=== PATIENT | male | born 1970 | race Caucasian/White ===

== ENCOUNTER 2016-06-08 12:48 | Emergency (ER) ==
[2016-06-08 13:11] VITALS: BP 133/74
[2016-06-08] MEDS ORDERED: MORPHINE IV ONE (13:46)
[2016-06-08] MEDS ORDERED: ZOFRAN IV ONE (13:46)
[2016-06-08] MEDS ORDERED: NS 1,000 ML IV ONE (13:46)
[2016-06-08 14:05] LABS: MANUAL DIFF NEEDED? NO
[2016-06-08 14:09] LABS: BASO% 0.5 % (0.0-0.8); EOS# 0.39 X1000 (0.0-0.7); EOS% 2.6 % (0.0-10.0); HEMATOCRIT 44.4 % (42.0-52.0); HEMOGLOBIN 15.1 g/dL (14.0-18.0); IMM GRAN# 0.14 X1000 (0.0-0.04); IMM GRAN% 0.9 % (0.0-0.5); LYMPH# 3.22 X1000 (1.2-3.4); LYMPH% 21.4 % (20.5-51.1); MCV 94.1 FL (81-99); MONO# 1.72 X1000 (0.11-0.59); MONO% 11.4 % (1.7-9.3); MPV 9.1 FL (7.4-10.4); NEUT% 63.2 % (42.2-75.2); PLT 409 X1000 (130-400); RBC 4.72 XMIL (4.7-6.1)
[2016-06-08 14:24] LABS: AGAP 10; ALBUMIN 4.3 g/dL (3.5-5.0); ALKALINE PHOSPHATASE 102 U/L (32-122); AMYLASE 53 U/L (20-200); BUN 13 mg/dL (8-22); CALCIUM 10.2 mg/dL (8.8-10.2); CHLORIDE 100 mmol/L (98-107); COSMO 270; GOT 23 U/L (10-34); GPT 28 U/L (10-44); INR 1.01 (0.86-1.15); LIPASE 30 U/L (13-60); POTASSIUM 4.1 mmol/L (3.5-5.1); PROTIME 13.6 Seconds (12.1-15.5); PTT PL 33.2 Seconds (22.6-43.9); SODIUM 135 mmol/L (136-145); TCO2 25 mmol/L (25-35); TOTAL PROTEIN 7.5 g/dL (6.3-8.3)
--- NOTE | 2016-06-08 15:37 | Diag Imaging Result Document ---
PROCEDURE NAME: US GB < RUQ (LIMITED) - 06/08/2016 ABDOMINAL ULTRASOUND: FINDINGS: Normal pancreatic body. Portions of the pancreatic head and tail are obscured. No aneurysmal dilatation to the abdominal aorta. The inferior vena cava is poorly seen. The liver is mildly prominent measuring 18.6 cm. I believe there is fatty infiltration of the liver as well. Normal gallbladder. No stones. The gallbladder wall is not thickened. The common bile duct measures 4 mm. Normal right kidney. No hydronephrosis. No ascites in the right upper quadrant. IMPRESSION: Mildly prominent liver with mild fatty infiltration.
[2016-06-08] MEDS ORDERED: ROCEPHIN 1 GM/NS 50 ML IV ONE (15:47)
--- NOTE | 2016-06-08 15:51 | Diag Imaging Result Document ---
PROCEDURE NAME: RENAL STONE SEARCH - 06/08/2016 CT ABDOMEN AND PELVIS WITHOUT ORAL OR INTRAVENOUS CONTRAST: COMPARISON: 06/11/2011. FINDINGS: The lung bases are clear. There is at least mild fatty infiltration of the liver. There are multiple scattered splenic granulomata. The spleen is not enlarged. No inflammation about the pancreas or gallbladder. No calcified gallstones. Normal adrenal glands. No renal stones. No hydronephrosis. Normal aorta. The left renal vein goes behind the aorta. This is a normal variant. No bowel obstruction. Normal appendix. No abscess. The urinary bladder is moderately distended and appears normal. The prostate is not enlarged. No ascites. No free air. IMPRESSION: 1. No renal stones or hydronephrosis. 2. Normal appendix. No abscess. No bowel obstruction. 3. Fatty infiltration of the liver. 4. No calcified gallstones or adjacent inflammation. A preliminary report was given at 3:37 p.m..
--- NOTE | 2016-06-08 16:08 | PROVIDER DOCUMENTATION ---
HPI-Abdominal Pain/GI Problem - General Source: patient - History of Present Illness-ABD Nature of Presenting Problems: Pt is 45 y/o M presents to the ED with RUQ pain. Pt states pain radiates to R flank. Pt states N but denies V or D. Pt denies F. Abdominal Pain Onset Location: reports: RUQ Pain Radiation: reports: flank (R) Quality of Pain: reports: aching Severity in ED: reports: mild Onset/Duration: reports: last week Timing: reports: still present, intermittent Activities at Onset: reports: light activity Exposure to sick contacts?: No Modifying Factors: improves with: nothing Associated Symptoms: reports: nausea. denies: anxiety, arm pain, back/neck pain , chest pain, constipation, cough, diaphoresis, diarrhea, dizziness, EENT symptoms, fatigue, fever/chills, genitourinary problems, headaches, heartburn, joint pain, loss of appetite, malaise, muscle aches, sinus congestion/drainage, rash, seizure, shortness of breath, sensory/motor loss, pain with inspiration, swelling/mass in abdomen, syncope, vomiting, weakness, trouble walking Last BM: unsure Dark Stools Present?: reports: none noticed Rectal Bleeding: reports: none Rectal Pain: reports: none Emesis Description: reports: none Bruising or Bleeding Gums?: No Similar Symptoms Previously?: Yes Recently seen or treated by another doctor?: Yes <Marry Baumann - Last Filed: 06/08/16 16:02> <Delon Zee - Last Filed: 06/08/16 16:13> - General Chief Complaint: Abdominal Pain Stated Complaint: ABD PAIN Time Seen by Provider: 06/08/16 13:26 Allergies/Adverse Reactions: Patient Allergies Allergy/AdvReac Type Severity Reaction Status Date / Time No Known Allergies Allergy Verified 06/08/16 13:30 Home Medications: Home Medication List Medication Instructions Recorded Confirmed Last Taken Type Esomeprazole [Nexium] 40 mg PO DAILY #30 capsule 06/08/16 Unknown Rx Ketorolac [Toradol] 10 mg PO Q6H PRN PRN #10 tablet 06/08/16 Unknown Rx Linaclotide [Linzess] 06/08/16 1 Day Ago History Review of Systems - Adult - REVIEW OF SYSTEMS - ADULT Constitutional: denies: chills, fever Eyes: denies: blurred vision, double vision Ears, Nose, Mouth & Throat: denies: ear pain, nose pain, throat pain Cardiovascular: denies: chest pain, heart murmur, irregular heart rate Respiratory: denies: cough, shortness of breath, wheezing Gastrointestinal: reports: abdominal pain, nausea. denies: diarrhea, vomiting Genitourinary: reports: hematuria. denies: dysuria Musculoskeletal: denies: bone pain, joint pain, neck pain Integumentary: denies: hives, itching Neurological: denies: dizziness/vertigo, headache/migraines Psychiatric: reports: no symptoms reported Endocrine: reports: no symptoms reported Hematologic/Lymphatic: reports: no symptoms reported Allergic/Immunologic: reports: no symptoms reported All Other Systems: Reviewed and Negative <Marry Baumann - Last Filed: 06/08/16 16:02> Past History - Adult - PAST MEDICAL HISTORY-ADULT Review of Records: reports: Nursing Assessment Review, Medications Reviewed, Social history reviewed & non-contributory. Major Childhood Illnesses: reports: denies history Cardiovascular: reports: denies history Respiratory: reports: sleep apnea Gastrointestinal: reports: denies history Obstetrical/Gynecological: reports: denies history Genitourinary: reports: denies history Musculoskeletal: reports: denies history Neurological: reports: denies history Endocrine/Immune: reports: denies history Other Conditions: reports: denies history - PRIOR SURGERIES/PROCEDURES Surgical/Procedure History: reports: none - IMMUNIZATION STATUS Childhood Immunizations: See Nurse Assessment Flu Vaccine: See Nurse Assessment - FAMILY HISTORY Family History: reviewed, not pertinent - SOCIAL HISTORY Smoking: cigarettes, less than 1 pack/day Provider spent 3-5 mins advising pt. on dangers of tobacco.: Discussed manners to quit use, and f/u contacts for add'l counseling. Substance Use: denies Living Situation: family <Marry Baumann - Last Filed: 06/08/16 16:02> Physical Exam-General - PHYSICAL EXAM-ADULT Initial Vital Signs Reviewed: Yes - CONSTITUTIONAL General Appearance: appears well, alert, no apparent distress - EYES Eyes: PERRL/EOMI, pink conjunctivae, fundi clear, no AV nicking - HEAD, EARS, NOSE, MOUTH & THROAT HENMT: normocephalic/atraumatic, moist mucous membranes, normal ENT inspection, TMs normal, pharynx normal - NECK Neck: non-tender, full range of motion, supple, normal inspection - RESPIRATORY Respiratory: chest non-tender, lungs clear, normal breath sounds, no pleuratic chest pain, no respiratory distress, no accessory muscle use - CARDIOVASCULAR Cardiovascular: normal peripheral pulses, regular rate, rhythm, no edema, no gallop, no JVD, no murmur - GASTROINTESTINAL (ABDOMEN) Abdominal Exam: normal bowel sounds, soft, no organomegaly, no pulsatile mass, tenderness (RUQ), Quevedo's sign (positive) - LYMPHATIC Lymphatic: no adenopathy - MUSCULOSKELETAL Back Exam: normal inspection, no CVA tenderness, no vertebral tenderness Extremity: normal range of motion, non-tender, normal gait, normal inspection, no pedal edema, no calf tenderness - SKIN Integumentary: normal color, normal turgor, warm/dry - NEUROLOGIC Neurologic: grossly normal - PSYCHIATRIC Psych/Mental Status: normal mood/affect, oriented x 3 <Marry Baumann - Last Filed: 06/08/16 16:02> Progress - PLAN OF CARE/RESULTS Progress/Plan/Lab Results: Laboratory Tests 06/08/16 06/08/16 06/08/16 13:55 13:55 13:55 WBC 15.04 H RBC 4.72 Hgb 15.1 Hct 44.4 MCV 94.1 MCH 32.0 H MCHC 34.0 RDW Std Deviation 13.6 Plt Count 409 H MPV 9.1 Immature Gran % (Auto) 0.9 H Neut % (Auto) 63.2 Lymph % (Auto) 21.4 [place] % (Auto) 11.4 H Eos % (Auto) 2.6 Baso % (Auto) 0.5 Immature Gran # (Auto) 0.14 H Neut # (Auto) 9.50 H Lymph # (Auto) 3.22 [place] # (Auto) 1.72 H Eos # (Auto) 0.39 Baso # (Auto) 0.07 PT 13.6 INR 1.01 APTT (Factor Assay) 33.2 Sodium 135 L Potassium 4.1 Chloride 100 Carbon Dioxide 25 Anion Gap 10 BUN 13 Creatinine 1.0 Estimated GFR/1.73 m2 > 60 BUN/Creatinine Ratio 13 Glucose 96 Calculated Osmolality 270 Calcium 10.2 Total Bilirubin 0.30 AST 23 ALT 28 Alkaline Phosphatase 102 Total Protein 7.5 Albumin 4.3 Globulin 3.0 Albumin/Globulin Ratio 1.0 Amylase 53 Lipase 30 Orders Category Date Time Status Saline Loc NOW Care 06/08/16 13:46 Active RENAL STONE SEARCH [CT] Stat Exams 06/08/16 15:10 Draft US GB < RUQ (LIMITED) [US] Stat Exams 06/08/16 13:46 Draft AMYLASE [CHEM] Stat Lab 06/08/16 13:55 Completed CBC WITH DIFF [HEME] Stat Lab 06/08/16 13:55 Completed COMPREHENSIVE METABOLIC PANEL [CHEM] Stat Lab 06/08/16 13:55 Completed LIPASE [CHEM] Stat Lab 06/08/16 13:[address] Com[address]IME WITH INR PL [COAG] Stat Lab 06/08/16 13:[address] [COAG] Stat Lab 06/08/16 13:55 Completed 0.9% Sodium Chloride Inj [Ns] 1,000 ml Med 06/08/16 13:46 Discontinued IV 999 mls/hr CefTRIAXONE 1 GM/NS [Rocephin 1 gm/Ns] 50 ml Med 06/08/16 15:47 Active IV NOW Morphine Med 06/08/16 13:46 Discontinued 4 mg IV NOW ONE Ondansetron [Zofran] Med 06/08/16 13:46 Discontinued 4 mg IV NOW ONE Vital Signs - 24 hr 06/08/16 13:04 Temperature 98 F Pulse Rate 71 Respiratory 18 Rate Blood Pressure 133/74 O2 Sat by Pulse 99 Oximetry - REASSESSMENT Reassessment #1 Time Reassessed: 16:06 (FUENTES Miles at bedside with Pt ) Status: improving Reassessment Comment: Pt states he feel a lot better - CT/MRI 1 CT Study: Renal Stone Impression: Normal (no bowel obstruction. fatty liver) CT Results: no renal stones or hydronephrosis; normal appendix - ULTRASOUND (By Radiology) 1 US Study: Gallbladder (RUQ) Impression: Normal US Results: normal gallbladder; mildly prominent liver with fatty infiltration <Marry Baumann - Last Filed: 06/08/16 16:02> Departure <Marry Baumann - Last Filed: 06/08/16 16:02> - Departure Time of Disposition Order: 16:11 Certified Medical Emergency: Emergent <Delon Zee - Last Filed: 06/08/16 16:13> - Departure DIAGNOSIS: Abdominal pain Qualifiers: Abdominal location: right upper quadrant Qualified Code(s): R10.11 - Right upper quadrant pain Disposition: HOME 01 Condition: Good Additional Instructions: Take medication as prescribed. Eat a bland diet. Avoid greasy/fatty/spicy foods. Follow up with a surgeon. ED Follow Up Instructions: You have been treated by a care provider in the Emergency Department. These instructions are being provided to you so you can have an understanding of how to care for yourself upon discharge. Upon discharge from the Emergency Department, you are responsible for making arrangements for follow-up care by a physician of your choice. Take all prescribed medications as directed. Return to the Emergency Department immediately for any new or worsening symptoms. You may call the Physician Referral phone number at [phone] to obtain a list of Physicians who are taking new patients. Prescriptions: Esomeprazole [Nexium] 40 mg PO DAILY #30 capsule Ketorolac [Toradol] 10 mg PO Q6H PRN PRN #10 tablet PRN Reason: Pain Referrals: Wang Almaguer MD [Primary Care Provider] - Romero Israel MD [STAFF PHYSICIAN] - Attestation - Scribe Verification/Attestation Scribe:: Marry Baumann Acting as Scribe for:: Delon Zee Scribe documention review:: This chart was documented by a scribe and accurately reflects the service the provider performed and the decisions made by the provider. <Marry Baumann - Last Filed: 06/08/16 16:02> - Physician/ STACEY Attestation Patient care was provided by Advanced Practice Provider:: Yes Advanced Practice Provider:: Delon Zee Advanced Practice Provider documentation review:: The Mid-level provider documentation, treatment plan and medical decision making was reviewed by the physician who agrees with all treatment and medical decision making by the P. <Delon Zee - Last Filed: 06/08/16 16:13> Physician Attestation
== END 2016-06-08 16:27 | disposition home or self-care (01) ==
LOC: P.ED 12:48
DX: R10.11 Right upper quadrant pain (principal); K76.0 Fatty (change of) liver, not elsewhere classified; R10.9 Unspecified abdominal pain; R11.0 Nausea; R31.9 Hematuria, unspecified; R10.811 Right upper quadrant abdominal tenderness; F17.210 Nicotine dependence, cigarettes, uncomplicated; Z71.6 Tobacco abuse counseling
CPT/HCPCS: 74176; 76705; 80053; 82150; 83690; 85025; 85610; 85730; 96361; 96365; 96375; J0696; J2270; J2405; J7030

== ENCOUNTER 2016-10-11 12:53 | Inpatient (IN) ==
[2016-10-11] MEDS ORDERED: NS 1,000 ML IV ONE ×2 (13:47→16:51)
[2016-10-11] MEDS ORDERED: ZOFRAN IV ONE (13:47)
[2016-10-11] MEDS ORDERED: MORPHINE IV ONE ×2 (13:47→16:51)
[2016-10-11 14:11] LABS: URINE MICRO REVIEW NEEDED? NO; URINE SOURCE CLEAN CATCH
[2016-10-11 14:29] LABS: BILIRUBIN URINE NEGATIVE (NEGATIVE); BLOOD URINE LARGE (NEGATIVE); COLOR ORANGE; GLUCOSE URINE 100 mg/dL (NEGATIVE); LEUKOCYTES URINE LARGE (NEGATIVE); NITRITE URINE NEGATIVE (NEGATIVE); PROTEIN URINE 200 mg/dL (NEGATIVE); SP GRAVITY URINE 1.016; TURBIDITY URINE TURBID (CLEAR); UR EPITHELIAL CELLS <10 /HPF (<10); URINE BACTERIA 4+ /HPF; URINE CULTURE NEEDED? YES; URINE RBC TNTC /HPF (<10); URINE WBC TNTC /HPF (<10); UROBILINOGEN URINE 2 mg/dL (NORMAL)
[2016-10-11] MEDS ORDERED: ROCEPHIN 1 GM/NS 1 GM/50 ML IVPB IV ONE ×2 (14:48→16:56)
[2016-10-11] MEDS ORDERED: ZITHROMAX PO ONE (14:48)
[2016-10-11 15:24] LABS: BASO% 0.3 % (0.0-0.8); EOS# 0.21 X1000 (0.0-0.7); HEMATOCRIT 44.7 % (42.0-52.0); HEMOGLOBIN 14.7 g/dL (14.0-18.0); IMM GRAN# 0.15 X1000 (0.0-0.04); IMM GRAN% 0.7 % (0.0-0.5); LYMPH# 2.07 X1000 (1.2-3.4); LYMPH% 9.8 % (20.5-51.1); MANUAL DIFF NEEDED? YES; MCH 32.3 PG (27-31); MCHC 32.9 g/dL (33-37); MCV 98.2 FL (81-99); MONO# 2.42 X1000 (0.11-0.59); MONO% 11.5 % (1.7-9.3); MPV 9.5 FL (7.4-10.4); NEUT% 76.7 % (42.2-75.2); PLT 450 X1000 (130-400); RBC 4.55 XMIL (4.7-6.1)
[2016-10-11 15:30] LABS: EOS 1 % (1-10); LYMPHS 20 % (21-51); MONO 8 % (1-9)
[2016-10-11 15:31] LABS: AGAP 11; ALBUMIN 3.9 g/dL (3.5-5.0); ALKALINE PHOSPHATASE 77 U/L (32-122); AMYLASE 29 U/L (20-200); BUN 8 mg/dL (8-22); CALCIUM 8.9 mg/dL (8.8-10.2); CHLORIDE 98 mmol/L (98-107); COSMO 268; GOT 84 U/L (10-34); GPT 276 U/L (10-44); LIPASE 15 U/L (13-60); POTASSIUM 4.1 mmol/L (3.5-5.1); SODIUM 135 mmol/L (136-145); TCO2 26 mmol/L (25-35); TOTAL BILIRUBIN 0.32 mg/dL (0.20-1.00); TOTAL PROTEIN 7.4 g/dL (6.3-8.3)
--- NOTE | 2016-10-11 15:53 | Diag Imaging Result Doc PS360 ---
EXAM: RENAL STONE SEARCH - 10/11/2016 HISTORY: Flank pain TECHNIQUE: Without contrast CT renal stone search. Dose reduction protocol. COMPARISON: 06/08/2016 FINDINGS: There is mild hydroureter with periureteral edema on the right. There is no substantial hydronephrosis identified. There is no renal stone identified. There is haziness of the pelvic fat around the urinary bladder which may relate to cystitis. The right hydroureter may relate to early urinary tract infection on the right. There is no evidence of bowel obstruction. The appendix is unremarkable. There is no free air. There are no calcified gallstones seen. IMPRESSION: Apparent urinary bladder cystitis. Mild right hydroureter which may relate to early urinary tract infection on the right. No renal stone identified. Electronically signed by Shiva Barnett 10/11/2016 3:50 PM
[2016-10-11 16:27] LABS: MANUAL DIFF NEEDED? NO
[2016-10-11 16:33] LABS: BASO% 0.4 % (0.0-0.8); EOS# 0.22 X1000 (0.0-0.7); EOS% 1.1 % (0.0-10.0); HEMATOCRIT 42.1 % (42.0-52.0); HEMOGLOBIN 13.9 g/dL (14.0-18.0); IMM GRAN# 0.11 X1000 (0.0-0.04); IMM GRAN% 0.6 % (0.0-0.5); LYMPH# 1.94 X1000 (1.2-3.4); LYMPH% 9.9 % (20.5-51.1); MCH 32.3 PG (27-31); MCV 97.9 FL (81-99); MONO# 2.07 X1000 (0.11-0.59); MONO% 10.6 % (1.7-9.3); MPV 9.5 FL (7.4-10.4); NEUT% 77.4 % (42.2-75.2); PLT 429 X1000 (130-400)
--- NOTE | 2016-10-11 16:56 | PROVIDER DOCUMENTATION ---
This chart was entered by Marry Baumann Scribe, acting as scribe for Judy Rojas MD. HPI-Male Problem - General Chief Complaint: Flank Pain Stated Complaint: KIDNEY STONE Time Seen by Provider: 10/11/16 14:33 Source: patient Allergies/Adverse Reactions: Patient Allergies Allergy/AdvReac Type Severity Reaction Status Date / Time No Known Allergies Allergy Verified 10/11/16 15:11 Home Medications: Home Medication List Medication Instructions Recorded Confirmed Last Taken Type Linaclotide [Linzess] 1 cap PO PRN PRN 06/08/16 10/11/16 10/11/16 08:00 History Phentermine HCl [Adipex-P] 37.5 mg PO DAILY 10/11/16 10/11/16 10/10/16 07:30 History - History of Present Illness-Male Nature of Presenting Problem: Pt is 46 y/o M presents to the ED with urinary retention and hematuria. Pt states the symptoms have been present since last night. Pt states possible STD. Pt states hx of kidney stones. Location of Complaint: reports: suprapubic Radiation: reports: none Quality of Pain: reports: aching Severity in ED: reports: mild Onset/Duration: reports: last night Timing: reports: still present Context/Activities at Onset: reports: light activity Urinary Symptoms: reports: hematuria, retention Sexual intercourse history: reports: Single Partner Contraception: reports: none Associated Symptoms: reports: back/neck pain (back). denies: anxiety, chest pain, constipation, cough, diaphoresis, diarrhea, dizziness, fatigue, fever/ chills, joint pain, loss of appetite, malaise, muscle aches, nausea, rash, seizure, sensory/motor loss, swelling/mass in abdomen, syncope, vomiting, weakness, trouble walking Similar Symptoms Previously?: Yes Recently seen or treated by another doctor?: No Review of Systems - Adult - REVIEW OF SYSTEMS - ADULT Constitutional: reports: no symptoms reported Eyes: reports: no symptoms reported Ears, Nose, Mouth & Throat: reports: no symptoms reported Cardiovascular: reports: no symptoms reported Respiratory: reports: no symptoms reported Gastrointestinal: reports: abdominal pain (suprapubic). denies: diarrhea, nausea, vomiting Genitourinary: reports: hematuria, urinary retention Musculoskeletal: reports: back pain. denies: bone pain, joint pain, neck pain Integumentary: reports: no symptoms reported Neurological: reports: no symptoms reported Psychiatric: reports: no symptoms reported Endocrine: reports: no symptoms reported Hematologic/Lymphatic: reports: no symptoms reported Allergic/Immunologic: reports: no symptoms reported All Other Systems: Reviewed and Negative Past History - Adult - PAST MEDICAL HISTORY-ADULT Review of Records: reports: Nursing Assessment Review, Medications Reviewed, Social history reviewed & non-contributory. Major Childhood Illnesses: reports: denies history Cardiovascular: reports: denies history Respiratory: reports: sleep apnea Gastrointestinal: reports: denies history Obstetrical/Gynecological: reports: denies history Genitourinary: reports: kidney stones Musculoskeletal: reports: denies history Neurological: reports: denies history Endocrine/Immune: reports: denies history Other Conditions: reports: denies history - PRIOR SURGERIES/PROCEDURES Surgical/Procedure History: reports: none - IMMUNIZATION STATUS Childhood Immunizations: See Nurse Assessment Flu Vaccine: See Nurse Assessment - FAMILY HISTORY Family History: reviewed, not pertinent - SOCIAL HISTORY Smoking: cigarettes, greater than 1 pack/day Provider spent 3-5 mins advising pt. on dangers of tobacco.: Discussed manners to quit use, and f/u contacts for add'l counseling. Substance Use: denies Living Situation: family Physical Exam-General - PHYSICAL EXAM-ADULT Initial Vital Signs Reviewed: Yes - CONSTITUTIONAL General Appearance: appears well, alert, no apparent distress - EYES Eyes: PERRL/EOMI, pink conjunctivae - HEAD, EARS, NOSE, MOUTH & THROAT HENMT: normal ENT inspection - NECK Neck: normal inspection - RESPIRATORY Respiratory: chest non-tender, lungs clear, normal breath sounds - CARDIOVASCULAR Cardiovascular: normal peripheral pulses, regular rate, rhythm - GASTROINTESTINAL (ABDOMEN) Abdominal Exam: normal bowel sounds, non tender, soft - LYMPHATIC Lymphatic: no adenopathy - MUSCULOSKELETAL Back Exam: normal inspection Extremity: normal inspection - SKIN Integumentary: normal color, normal turgor, warm/dry - NEUROLOGIC Neurologic: grossly normal - PSYCHIATRIC Psych/Mental Status: normal mood/affect, oriented x 3 Progress - PLAN OF CARE/RESULTS Progress/Plan/Lab Results: Vital Signs - 8 hr 10/11/16 13:39 Temperature 97.5 F L Pulse Rate 95 H Respiratory Rate 20 Blood Pressure 146/77 O2 Sat by Pulse Oximetry 99 Laboratory Results - last 24 hr 10/11/16 10/11/16 10/11/16 13:57 15:02 15:02 WBC 21.05 H RBC 4.55 L Hgb 14.7 Hct 44.7 MCV 98.2 MCH 32.3 H MCHC 32.9 L RDW Std Deviation 14.9 H Plt Count 450 H MPV 9.5 Immature Gran % (Auto) 0.7 H Neut % (Auto) 76.7 H Lymph % (Auto) 9.8 L [place] % (Auto) 11.5 H Eos % (Auto) 1.0 Baso % (Auto) 0.3 Immature Gran # (Auto) 0.15 H Neut # (Auto) 16.13 H Lymph # (Auto) 2.07 [place] # (Auto) 2.42 H Eos # (Auto) 0.21 Baso # (Auto) 0.07 Segmented Neutrophils 71 Lymphocytes 20 L Monocytes 8 Eosinophils 1 Sodium 135 L Potassium 4.1 Chloride 98 Carbon Dioxide 26 Anion Gap 11 BUN 8 Creatinine 1.0 Estimated GFR/1.73 m2 > 60 BUN/Creatinine Ratio 8 Glucose 99 Calculated Osmolality 268 Calcium 8.9 Total Bilirubin 0.32 AST 84 H ALT 276 H Alkaline Phosphatase 77 Total Protein 7.4 Albumin 3.9 Globulin 3.5 Albumin/Globulin Ratio 1.1 Amylase 29 Lipase 15 Urine Source CLEAN CATCH Urine Color ORANGE Urine Turbidity TURBID Urine pH 6.0 Ur Specific [place] 1.016 Urine Protein 200 A Ur Glucose (Stick) 100 A Ur Ketones (Stick) NEGATIVE Urine Blood LARGE A Urine Nitrite NEGATIVE Urine Bilirubin NEGATIVE Urobilinogen Dipstick 2 A Urine Leukocytes LARGE A Urine WBC (Auto) TNTC A Urine RBC (Auto) TNTC A U Epithel Cells (Auto) <10 Urine Bacteria (Auto) 4+ 10/11/16 16:20 WBC 19.61 H RBC 4.30 L Hgb 13.9 L Hct 42.1 MCV 97.9 MCH 32.3 H MCHC 33.0 RDW Std Deviation 14.7 H Plt Count 429 H MPV 9.5 Immature Gran % (Auto) 0.6 H Neut % (Auto) 77.4 H Lymph % (Auto) 9.9 L [place] % (Auto) 10.6 H Eos % (Auto) 1.1 Baso % (Auto) 0.4 Immature Gran # (Auto) 0.11 H Neut # (Auto) 15.20 H Lymph # (Auto) 1.94 [place] # (Auto) 2.07 H Eos # (Auto) 0.22 Baso # (Auto) 0.07 Segmented Neutrophils Lymphocytes Monocytes Eosinophils Sodium Potassium Chloride Carbon Dioxide Anion Gap BUN Creatinine Estimated GFR/1.73 m2 BUN/Creatinine Ratio Glucose Calculated Osmolality Calcium Total Bilirubin AST ALT Alkaline Phosphatase Total Protein Albumin Globulin Albumin/Globulin Ratio Amylase Lipase Urine Source Urine Color Urine Turbidity Urine pH Ur Specific [place] Urine Protein Ur Glucose (Stick) Ur Ketones (Stick) Urine Blood Urine Nitrite Urine Bilirubin Urobilinogen Dipstick Urine Leukocytes Urine WBC (Auto) Urine RBC (Auto) U Epithel Cells (Auto) Urine Bacteria (Auto) Orders Category Date Time Status Saline Loc DIRECTED Care 10/11/16 13:47 Active NPO Diet 10/11/16 13:47 Active RENAL STONE SEARCH [CT] Stat Exams 10/11/16 13:47 Completed AMYLASE [CHEM] Stat Lab 10/11/16 15:02 Completed CBC WITH DIFF [HEME] Stat Lab 10/11/16 16:20 Completed CBC WITH ELECTRONIC DIFF [HEME] Stat Lab 10/11/16 15:02 Completed COMPREHENSIVE METABOLIC PANEL [CHEM] Stat Lab 10/11/16 15:02 Completed LIPASE [CHEM] Stat Lab 10/11/16 15:02 Completed URINALYSIS W/POSS RFLX CULT-1 [URINALYSIS] Stat Lab 10/11/16 13:57 Completed URINE CULTURE [RM] Routine Lab 10/11/16 14:31 Received 0.9% Sodium Chloride Inj [Ns] 1,000 ml Med 10/11/16 13:47 Discontinued IV 999 mls/hr Azithromycin [Zithromax] Med 10/11/16 14:48 Discontinued 1,000 mg PO NOW ONE CefTRIAXONE 1 GM/NS [Rocephin 1 gm/Ns] Med 10/11/16 14:48 Discontinued 1 gm in 50 ml IV NOW Morphine Med 10/11/16 13:47 Discontinued 4 mg IV NOW ONE Morphine Med 10/11/16 16:51 Once 4 mg IV NOW ONE Ns 1000 ml IV Bolus X1 Med 10/11/16 16:51 Ordered 0.9% Sodium Chloride Inj [Ns] 1,000 ml IV 999 mls/hr Ondansetron [Zofran] Med 10/11/16 13:47 Discontinued 4 mg IV NOW ONE Result Diagrams: 10/11/16 16:20 10/11/16 15:02 - REASSESSMENT Reassessment #1 Time Reassessed: 16:53 Status: unchanged (Pt reports severe hematuria severe pain again. 2nd liter IVF and Morphine 4mg IV given. Will call Dr. Alcaraz for admission.) - CT/MRI 1 CT Study: Renal Stone Impression: Abnormal (mild right hydroureter which may relate to early urinary tract infection on the right. no renal stone identified) CT Results: apparent urinary bladder cystitis. Departure - Departure Date of Disposition Decision: 10/11/16 Time of Disposition Decision: 16:55 DIAGNOSIS: Pyelonephritis, Cystitis Disposition: ADMITTED INPATIENT 09 Certified Medical Emergency: Emergent Condition: Stable Referrals and Follow-Ups: Wang Almaguer MD [Primary Care Provider] - - Critical Care Note This patient required my direct & personal management of CC.: No This chart was documented by the indicated scribe, (Marry Baumann, Joaquina) and accurately reflects the services I performed and decisions made by me, Judy Rojas MD, as attested by the provider's signature.
[2016-10-11] MEDS ORDERED: PYRIDIUM PO ONE (18:13)
[2016-10-11] MEDS ORDERED: LINZESS PO PRN (18:28)
[2016-10-11] MEDS ORDERED: ZOFRAN ODT PO PRN (20:02)
--- NOTE | 2016-10-11 20:06 | HISTORY AND PHYSICAL ---
CHIEF COMPLAINT: Difficulty with urination and pain on urination. HISTORY OF PRESENT ILLNESS: The patient is a 46-year-old morbidly obese white male weighing 410 pounds who comes in with a history of last night starting to have difficulty with urination and then having blood in his urine. He had a good bit of suprapubic pain and a little bit of right CVA pain. He has had a history of kidney stones, but does not know that he has passed one at this time. He did notice a good bit of blood. PAST HISTORY: He has had a kidney stone in the past. He denies having had a urinary tract infection in the past. He is currently on Adipex 37.5 mg p.o. daily. And Linzess 1 capsule p.o. p.r.n. constipation. He has not had one of those today. ALLERGIES: He has no known drug allergies. FAMILY HISTORY: Unremarkable. SOCIAL HISTORY: He does smoke greater than a pack of cigarettes daily. REVIEW OF SYSTEMS: Neurological: Patient has headaches on occasion. Does not have 1 at this time. Has no visual problems, hearing problems. Pulmonary: Denies shortness of breath, cough, wheezing. Cardiovascular: Denies chest pain, heart palpitations, PND, orthopnea. GI: Denies hematochezia, hematemesis, melena, constipation, diarrhea. : Has had hematuria with difficulty voiding and burning on urination, as well as right CVA tenderness. Musculoskeletal: Has had some occasional back pain. Has had a little bit today. Integument: Has no symptoms associated with rash or other skin eruptions. Psychiatric: Denies any anxiety or depression. Endocrine: Denies any pituitary disease, thyroid disease, diabetes. PHYSICAL EXAMINATION: VITAL SIGNS: Temperature was 97.5 degrees Fahrenheit. Pulse is 95 and regular, respirations 20, blood pressure 146/77, O2 saturation was 99%. GENERAL: Initially when he came in, he was in a good bit of pain and was given pain medication by the emergency room physician is now more comfortable. HEENT: Normocephalic. EOMs intact. PERRLA. Throat clear. Fundi benign. NECK: Supple without thyromegaly, lymphadenopathy, or carotid bruits. LUNGS: Clear to auscultation and percussion without rhonchi, rales, or wheezes. HEART: Regular rate rhythm without murmurs, gallops, or friction rubs. ABDOMEN: Soft. Active bowel sounds. He does have a little tenderness over the suprapubic area and over the right CVA area. RECTAL: Deferred. INTEGUMENT: Shows no lesions consistent with melanoma or other skin cancers. LYMPHATIC: Lymph nodes are nonpalpable in the cervical or supraclavicular areas. NEUROLOGICAL: Cranial nerves 2-12 intact grossly. Sensory and motor intact. Reflexes 1+ all. LABORATORY: Shows a white count 21,050, hemoglobin 14.7, platelet count a little high at 450,000. Sodium 135, potassium 4.1, BUN 8, creatinine 1. GFR greater than 60. Blood sugar 99. Liver function tests were slightly elevated with an AST of 84, ALT 276. Urine was orange color, turbid and had too numerous to count WBCs and too numerous to count RBCs. Urine protein was 200. Nitrate was negative. 4+ bacteria. ER physician repeated his white count was 19,600. At this time he is not running a fever. ASSESSMENT: 1. Pyelonephritis. 2. Hemorrhagic cystitis. Please note, CT scan was done which shows some mild right hydroureter and apparent bladder cystitis. It is possible that he could have had a stone has passed out already and now has a urinary tract infection on top of it. Due to his pain and the hematuria, I may go ahead and admit him to the hospital, start him on IV antibiotics. We will do cultures. Try to control his pain. cc: MD Wang Drummond Jr, MD
[2016-10-11] MEDS: NS 1,000 ML IV SCH (20:45)
[2016-10-11] MEDS: NORCO-10 PO PRN (20:45)
[2016-10-12] MEDS: NS 1,000 ML IV SCH ×3 (05:07→20:30)
[2016-10-12] MEDS: ROCEPHIN 1 GM/NS 1 GM/50 ML IVPB IV SCH ×2 (05:08→17:30)
[2016-10-12] MEDS: NORCO-10 PO PRN ×2 (06:53→18:40)
--- NOTE | 2016-10-12 07:20 | PROGRESS NOTE ---
DATE: 10/12/2016 SUBJECTIVE: Mr. Womack is a 46-year-old gentleman admitted with suprapubic and right flank pain, some chills, hematuria. Urinalysis did reveal blood and too numerous to count WBC. Urine culture and blood culture are pending. The patient is doing fair. He does have some pain. He denied any nausea and vomiting. No chest pain. A known case of sleep apnea. The patient is morbidly obese. His vital signs noted. He is on CPAP. Admission history and physical noted. OBJECTIVE: Vital Signs: Reviewed. General: The patient is morbidly obese. Neck: Supple. No JVD. Lungs: Bilateral good air entry present. Cardiovascular: S1 and S2 heard. Abdomen: Soft, globular. Bowel sounds present. Mild suprapubic tenderness. Extremities: No cyanosis, clubbing. No acute DVT. Central Nervous System: Alert, awake, able to move all 4 limbs. DIAGNOSTIC DATA: The patient lab data done yesterday did reveal leukocytosis. He did have abnormal LFT, most likely due to fatty liver. Urinalysis did reveal too numerous to count WBC and RBC. CT scan for renal stone search did reveal cystitis, mild right hydroureter, which may be related to early urinary tract infection on the right. No renal stone identified. CONSIDERATION: 1. Hemorrhagic cystitis. 2. Right hydroureter. 3. Morbid obesity. 4. Sleep apnea. PLAN: The patient is on IV antibiotics, pain management, IV hydration. The patient is on Linzess for constipation, which we will continue. The overall plan was discussed with the patient. He is in agreement. cc: Wang Almaguer MD
[2016-10-12] MEDS: PYRIDIUM PO SCH ×3 (09:40→17:31)
[2016-10-12] MEDS: PATIENT'S OWN MED PO SCH (10:13)
[2016-10-13] MEDS: NS 1,000 ML IV SCH (01:59)
[2016-10-13] MEDS: ROCEPHIN 1 GM/NS 1 GM/50 ML IVPB IV SCH (04:52)
[2016-10-13 06:00] LABS: MANUAL DIFF NEEDED? NO
[2016-10-13 06:06] LABS: BASO% 0.9 % (0.0-0.8); HEMATOCRIT 40.5 % (42.0-52.0); HEMOGLOBIN 13.1 g/dL (14.0-18.0); IMM GRAN# 0.11 X1000 (0.0-0.04); IMM GRAN% 1.1 % (0.0-0.5); LYMPH# 2.11 X1000 (1.2-3.4); LYMPH% 21.4 % (20.5-51.1); MCH 31.9 PG (27-31); MCHC 32.3 g/dL (33-37); MCV 98.5 FL (81-99); MONO# 1.31 X1000 (0.11-0.59); MONO% 13.3 % (1.7-9.3); MPV 9.7 FL (7.4-10.4); NEUT% 61.3 % (42.2-75.2); PLT 431 X1000 (130-400); RBC 4.11 XMIL (4.7-6.1)
[2016-10-13 06:23] LABS: AGAP 10; ALBUMIN 3.4 g/dL (3.5-5.0); ALKALINE PHOSPHATASE 69 U/L (32-122); BUN 8 mg/dL (8-22); CALCIUM 8.9 mg/dL (8.8-10.2); CHLORIDE 104 mmol/L (98-107); COSMO 277; GOT 74 U/L (10-34); GPT 215 U/L (10-44); MAGNESIUM 1.9 mg/dL (1.5-2.7); POTASSIUM 4.3 mmol/L (3.5-5.1); SODIUM 140 mmol/L (136-145); TCO2 26 mmol/L (25-35); TOTAL PROTEIN 6.8 g/dL (6.3-8.3)
[2016-10-13 07:23] VITALS: BP 134/83
[2016-10-13] MEDS: PYRIDIUM PO SCH (08:21)
[2016-10-13] MEDS: NORCO-10 PO PRN (08:32)
[2016-10-13] MEDS: PATIENT'S OWN MED PO SCH (09:40)
--- NOTE | 2016-10-13 18:31 | DISCHARGE SUMMARY ---
ADMISSION DATE: 10/11/2016 DISCHARGE DATE: 10/13/2016 FINAL DISCHARGE DIAGNOSES: 1. Hemorrhagic cystitis. 2. Hematuria. 3. Morbid obesity. 4. Abdominal pain. 5. Urinary tract infection. 6. Sleep apnea. 7. Leukocytosis improved. HOSPITAL COURSE: Mr. Womack is a 46-year-old, morbidly obese patient admitted with urinary frequency, urgency, dysuria, hematuria. The patient was in moderate pain. He had also some fever and chills. Evaluated in the ER. The patient did have leukocytosis, tenderness in the hypogastric area and right renal angle. CT scan of the abdomen for a renal stone search did reveal cystitis, mild right hydroureter. No renal stone identified. The patient was in moderate pain having leukocytosis. We did entertain the possibility of pyelonephritis. The patient was admitted and treated with IV fluids, IV antibiotics, pain medicine, symptomatic treatment. His clinical condition gradually improved. The patient is doing better. His urine is clear. It is dark-colored due to Pyridium. No high-grade fever or chills. Tolerating food well. No nausea or vomiting. Overall patient received maximum benefit of hospitalization. The patient is eager to go home and we will discharge him home today on Levaquin. Urine is growing gram-negative rods. Final culture result is pending. Blood culture with no growth. DISCHARGE PHYSICAL EXAMINATION: Vital Signs: Noted. Lungs: Clear. Heart: Regular. Abdomen: Soft, globular. Bowel sounds present. Mild hypogastric tenderness. Extremities: No cyanosis, clubbing. No acute DVT. Central Nervous System: Alert, awake. Able to move all 4 limbs. LABORATORY DATA: Revealed improvement in leukocyte count. Patient did have abnormal LFTs most likely due to fatty liver. DISCHARGE INSTRUCTIONS: 1. I encouraged patient to drink plenty of liquids orally. 2. Weight reduction. 3. The patient does have constipation for which he is on Linzess. Follow up with me in a week. 4. In case of more distress, call us back or go to emergency room. I gave him a few pain medicines and Levaquin. 5. Overall plan discussed at length with the patient. He is in agreement. cc: Wang Almaguer MD
== END 2016-10-13 11:31 | disposition home or self-care (01) ==
LOC: ED 12:53 → 4N 12:54
PROVIDERS: ADMIT Internal Medicine; ATTEND Internal Medicine